=== PATIENT | male | born 1985 | race Caucasian/White ===

== ENCOUNTER 2016-12-28 15:56 | Emergency (ER) | payer OTHER, BC ==
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
== END 2016-12-28 17:12 | disposition home or self-care (01) ==
LOC: ER 15:56
DX: S00.33XA Contusion of nose, initial encounter (principal); V49.40XA Driver injured in collision with unspecified motor vehicles in traffic accident, initial encounter

== ENCOUNTER 2017-01-05 07:38 | Day surgery (SDC) | payer OTHER ==
[~2017-01-05] VITALS: Ht 180.3 cm; Wt 93.0 kg
--- NOTE | 2017-01-09 06:57 | OR ---
ADMIT: 01/05/2017 RM/LOC: [facility] MR#: [id number] [address] [address] RICKI PALACIO [address] [place] [address] Operative/Delivery Room Report SEX: M AGE: 31 : 1985 SURGERY DATE: 01/05/2017 SURGEON: Constantine Soto MD PREOPERATIVE DIAGNOSIS: Nasal and nasal septal fracture with internal and external deviation. POSTOPERATIVE DIAGNOSIS: Nasal and nasal septal fracture with internal and external deviation. OPERATIONS: 1. Septoplasty. 2. Closed reduction, nasal bones. 3. Internal splinting with Joy splints. 4. External Trent splint. ANESTHESIA: General oral endotracheal. BLOOD LOSS: 30 mL. COMPLICATIONS: None. DESCRIPTION OF PROCEDURE: With the patient in supine position under general endotracheal anesthesia, his eyes were taped. Anterior face was cleansed. The patient was draped sterilely. The nose was examined with nasal speculum. There was a septal deviation to the left, beginning at CSA2 and extending into CSA3 with a sharp bony spur impinging the lateral nasal wall. There were no other intranasal lesions identified. Externally, the nasal pyramid was rotated to the right. There was moderate persistent edema involving the midportion of nasal structures at distal end of nasal bones. A #7 scalpel handle was used to examine the nasal bone identifying an in-fracture of the left nasal bone. This was elevated easily with #7 scalpel elevator, but there was no support, it tended to drift medially. A nasal septoplasty was then performed. After treating membranes with topical cocaine 4% followed by injection of Xylocaine with epinephrine 1:100,000 after good local anesthesia and vasoconstriction, an incision was made at the caudal at the septum of left side. The left mucoperichondrium and mucoperiosteum was elevated. There was a traumatic separation due to fracture of the bony cartilaginous septum and a fracture of the perpendicular plate of ethmoid, causing a spur extending to the left. The right mucoperiosteum was elevated exposing the fractured perpendicular plate, and fracture fragments were then grasped with ethmoid forceps and removed allowing reduction of the nasal septum to midline. The inferior aspect of the quadrangular cartilage required trimming to allow to resume midline position overlying maxillary crest and following these maneuvers, the septum returned to midline. There was a patent nasal airway bilaterally. With external manual rotation and internal #7 scalpel handle elevating the left nasal bone, the ADMIT: 01/05/2017 RM/LOC: [facility] MR#: [id number] [address] [place] [address] RICKI PALACIO [address] [place] [address] Operative/Delivery Room Report SEX: M AGE: 31 : 1985 right nasal bone was reduced into its near midline position. There was still slight asymmetry of the nasal appearance, but appeared related to the left nasal bone fracture. I therefore elected to splint intranasally after suturing the septal incision with 4-0 plain catgut and placing mattress sutures reapproximating mucoperichondrial flaps. Joy splints were coated with bacitracin ointment, placed in the nasal cavity to elevate the left nasal bone and secured with 3-0 Prolene mattress suture. Externally, a Trent splint was applied and he tolerated the procedure very well. His pupils remained equal. There was no proptosis. Total blood loss for the procedure was 30 mL and good hemostasis at completion. He emerged from general anesthesia in the operating room, was extubated in the operating room, and transferred to the recovery room in good condition. Constantine Soto MD/ misael JOB #: [id number] CC: Constantine Soto, Attending Physician Mike Yeager, Family Physician
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
== END 2017-01-05 16:10 | disposition home or self-care (01) ==
LOC: SSS 07:38
PROC: 09CM0ZZ Extirpation of Matter from Nasal Septum, Open Approach (ICD-10-PCS; principal; 2017-01-05)
DX: S02.2XXA Fracture of nasal bones, initial encounter for closed fracture (principal); J34.2 Deviated nasal septum; I10 Essential (primary) hypertension; E05.00 Thyrotoxicosis with diffuse goiter without thyrotoxic crisis or storm; Z98.890 Other specified postprocedural states; Z79.899 Other long term (current) drug therapy; V89.2XXA Person injured in unspecified motor-vehicle accident, traffic, initial encounter